=== PATIENT | male | born 1955 | race Caucasian/White ===

== ENCOUNTER 2022-07-07 09:19 | Outpatient (CLI) | payer MEDICARE, BC, SELFPAY | END 2022-07-07 09:20 | disposition home or self-care (01) | PROVIDERS: PCP Family Medicine; Visit Provider Family Medicine | DX: Z00.00 Encounter for general adult medical examination without abnormal findings (principal); Z12.5 Encounter for screening for malignant neoplasm of prostate; Z11.59 Encounter for screening for other viral diseases; Z13.6 Encounter for screening for cardiovascular disorders | CPT/HCPCS: 80053; 80061; 84153; 86803 ==

== ENCOUNTER 2022-08-18 11:35 | Outpatient (CLI) | payer MEDICARE, BC, SELFPAY | END 2022-08-18 11:36 | disposition home or self-care (01) | LOC: OP CLINIC 11:36 | PROVIDERS: PCP Family Medicine; Visit Provider Surgery | DX: Z86.010 Personal history of colon polyps (principal); K63.5 Polyp of colon; K62.1 Rectal polyp | CPT/HCPCS: 45380; 45381; 45385; 88305; 88341; 88342; 99153; J2250; J3010 ==

== ENCOUNTER 2022-09-02 07:26 | Outpatient (CLI) | payer MEDICARE, BC, SELFPAY ==
[2022-09-02 07:54] LABS: Creatinine* 1.2 mg/dL (0.5-1.5); Estimated Glomerular Filt Rate 67 ml/min
--- NOTE | 2022-09-02 08:00 | CRLHL7_ITS ---
For Patients: As a result of the Century Cures Act, medical imaging exams and procedure reports are released immediately into your electronic medical record. You may view this report before your referring provider. If you have questions, please contact your health care provider. Indication: MALIGNANT NEOPLASM OF COLON Technique: Postcontrast CT abdomen and pelvis. 79 cc Isovue 370 intravenous contrast. Please note that all CT scans at this facility use dose modulation, iterative reconstruction, and/or weight-based dosing when appropriate to reduce radiation dose to as low as reasonably achievable. Comparison: Ultrasound aorta and CT chest 07/16/2022 Findings: 4.7 millimeter nodule right lower lobe again noted. No pleural effusion. A few scattered calcifications are present within the liver. No suspicious intrahepatic mass. The gallbladder is normal. No calcified gallstones or biliary obstruction. The pancreas is normal. Calcified granulomas in the spleen are present. The adrenal glands are within normal limits. The kidneys are normal. Atherosclerotic disease. No aneurysm. No adenopathy. The bladder is normal. Mild heterogeneity of the prostate. No bowel obstruction or free fluid. No abscess. Diverticulosis. No fracture or suspicious osseous lesion. Impression: 4.7 millimeter nodule previously evaluated with screening CT 07/16/2022, unchanged. No adenopathy or intrahepatic mass. Colonic diverticulosis. No mesenteric fat stranding or adenopathy. Sequela of granulomatous disease with calcifications in the liver and spleen. Please note that all CT scans at this facility use dose modulation, iterative reconstruction, and/or weight-based dosing when appropriate to reduce radiation dose to as low as reasonably achievable. Dictated by Louis Arzola MD @ 09/02/2022 12:44:06 PM (Electronically Signed)
== END 2022-09-02 07:27 | disposition home or self-care (01) ==
LOC: CT 07:27
PROVIDERS: PCP Family Medicine; Visit Provider Surgery
DX: C18.9 Malignant neoplasm of colon, unspecified (principal); K57.30 Diverticulosis of large intestine without perforation or abscess without bleeding
CPT/HCPCS: 36415; 74177; 82565; Q9967

== ENCOUNTER 2022-09-11 14:06 | Outpatient (CLI) | payer MEDICARE, BC, SELFPAY | END 2022-09-11 14:07 | disposition home or self-care (01) | LOC: NFLDREF 09-14 06:23 | PROVIDERS: PCP Family Medicine; Referring Provider Family Medicine; Visit Provider Surgery | DX: C18.9 Malignant neoplasm of colon, unspecified (principal) | CPT/HCPCS: 82378 ==

== ENCOUNTER 2022-10-02 09:47 | Outpatient (CLI) | payer MEDICARE, BC, SELFPAY | END 2022-10-02 09:48 | disposition home or self-care (01) | PROVIDERS: PCP Family Medicine; Visit Provider Family Medicine | DX: Z01.818 Encounter for other preprocedural examination (principal) | CPT/HCPCS: 80053 ==

== ENCOUNTER 2023-01-26 22:43 | Outpatient (REF) | payer MEDICARE, BC, SELFPAY ==
[2023-01-29 08:45] LABS: Carcinoembryonic Antigen 1.4 ng/mL (<=3.8)
== END 2023-01-26 22:44 | disposition home or self-care (01) ==
LOC: NPINS 22:43
PROVIDERS: PCP Family Medicine; Visit Provider Colon & Rectal Surgery
DX: C18.9 Malignant neoplasm of colon, unspecified (principal)
CPT/HCPCS: 82378

== ENCOUNTER 2023-08-27 13:38 | Outpatient (CLI) | payer MEDICARE, BC, SELFPAY ==
--- NOTE | 2023-08-27 14:00 | CRLHL7_ITS ---
For Patients: As a result of the Cures Act, medical imaging exams and procedure reports are released immediately into your electronic medical record. You may view this report before your referring provider. If you have questions, please contact your health care provider. INDICATION: Lung cancer screening. History of smoking. High risk patient with greater than 40 pack-year smoking history. TECHNIQUE: Low-dose lung cancer screening non-contrast CT chest. Dose reduction techniques were used. COMPARISON: 07/16/2022 FINDINGS: NODULES: 4.8 millimeter nodule right lower lobe, series 3, image 121, unchanged. Calcified right perihilar nodule. Smaller calcified nodules elsewhere. LUNGS AND PLEURA: Emphysema. Areas of scarring. MEDIASTINUM: Calcified lymph nodes representing sequela of granulomatous change. CORONARY ARTERY CALCIFICATION: Present. LIMITED UPPER ABDOMEN: Calcified splenic granulomas. MUSCULOSKELETAL: Unremarkable. IMPRESSION: Negative for lung cancer screening purposes. LUNG-RADS CATEGORY: 2: Benign. RADIOLOGIST RECOMMENDATION: Continue annual screening with low-dose CT chest in 12 months. Please note that all CT scans at this facility use dose modulation, iterative reconstruction, and/or weight-based dosing when appropriate to reduce radiation dose to as low as reasonably achievable. Dictated by Louis Arzola MD @ 08/28/2023 1:07:23 PM (Electronically Signed)
== END 2023-08-27 13:39 | disposition home or self-care (01) ==
LOC: CT 13:39
PROVIDERS: PCP Family Medicine; Visit Provider Family Medicine
DX: Z12.2 Encounter for screening for malignant neoplasm of respiratory organs (principal); Z87.891 Personal history of nicotine dependence
CPT/HCPCS: 71271

== ENCOUNTER 2023-10-05 07:29 | Outpatient (CLI) | payer MEDICARE, BC, SELFPAY | END 2023-10-05 07:30 | disposition home or self-care (01) | PROVIDERS: PCP Family Medicine; Visit Provider Family Medicine | DX: I10 Essential (primary) hypertension (principal); Z13.6 Encounter for screening for cardiovascular disorders; Z13.1 Encounter for screening for diabetes mellitus; Z12.5 Encounter for screening for malignant neoplasm of prostate | CPT/HCPCS: 80053; 80061; 82043; 82570; G0103 ==

== ENCOUNTER 2023-11-02 07:57 | Outpatient (CLI) | payer MEDICARE, BC, SELFPAY ==
--- NOTE | 2023-11-02 09:00 | W.ANESCHARGE ---
Anesthesia Charges Start Date/Time Anesthesia Start Date: 11/02/23 Anesthesia Start Time: 08:50 Stop Date/Time Anesthesia Stop Date: 11/02/23 Anesthesia Stop Time: 09:14
--- NOTE | 2023-11-02 09:25 | W.ANESCHARGE ---
Anesthesia Charges Start Date/Time Anesthesia Start Date: 11/02/23 Anesthesia Start Time: 08:50 Stop Date/Time Anesthesia Stop Date: 11/02/23 Anesthesia Stop Time: 09:14
== END 2023-11-02 07:58 | disposition home or self-care (01) ==
PROVIDERS: PCP Family Medicine; Visit Provider Internal Medicine
DX: Z86.010 Personal history of colon polyps (principal); D12.8 Benign neoplasm of rectum
CPT/HCPCS: 00811; 45380; 88305; J2704

== ENCOUNTER 2024-09-01 07:53 | Outpatient (CLI) | payer MEDICARE, BC, SELFPAY ==
--- NOTE | 2024-09-01 08:00 | CRLHL7_ITS ---
For Patients: As a result of the Century Cures Act, medical imaging exams and procedure reports are released immediately into your electronic medical record. You may view this report before your referring provider. If you have questions, please contact your health care provider. INDICATION: Lung cancer screening. History of smoking. High risk patient with greater than 60 pack-year smoking history. TECHNIQUE: Low-dose lung cancer screening non-contrast CT chest. Dose reduction techniques were used. COMPARISON: 07/16/2022 FINDINGS: NODULES: Small bilateral nodules are similar, the largest is located within the right lower lobe and measures 5 millimeters. LUNGS AND PLEURA: Emphysema. MEDIASTINUM: Small calcified upper mediastinal lymph nodes are similar. Numerous other calcified lymph nodes are present elsewhere within the mediastinum and right hilum. CORONARY ARTERY CALCIFICATION: Mild. LIMITED UPPER ABDOMEN: Calcified splenic granulomas. MUSCULOSKELETAL: Unremarkable. IMPRESSION: Stable bilateral pulmonary nodules. LUNG-RADS CATEGORY: 2: Benign. RADIOLOGIST RECOMMENDATION: Continue annual screening with low-dose CT chest in 12 months. Please note that all CT scans at this facility use dose modulation, iterative reconstruction, and/or weight-based dosing when appropriate to reduce radiation dose to as low as reasonably achievable. Dictated by Louis Arzola MD @ 09/02/2024 12:36:57 PM (Electronically Signed)
== END 2024-09-01 07:54 | disposition home or self-care (01) ==
LOC: CT 07:54
PROVIDERS: PCP Family Medicine; Visit Provider Family Medicine
DX: Z12.2 Encounter for screening for malignant neoplasm of respiratory organs (principal); R91.8 Other nonspecific abnormal finding of lung field; Z87.891 Personal history of nicotine dependence
CPT/HCPCS: 71271

== ENCOUNTER 2024-09-23 11:50 | Outpatient (CLI) | payer MEDICARE, BC, SELFPAY | END 2024-09-23 11:51 | disposition home or self-care (01) | LOC: NFLDREF 09-25 05:56 | PROVIDERS: PCP Family Medicine; Referring Provider Family Medicine; Visit Provider Family Medicine | DX: E78.5 Hyperlipidemia, unspecified (principal); I10 Essential (primary) hypertension; C18.9 Malignant neoplasm of colon, unspecified; J44.1 Chronic obstructive pulmonary disease with (acute) exacerbation; Z12.5 Encounter for screening for malignant neoplasm of prostate | CPT/HCPCS: 80053; 80061; 82043; 82570; G0103 ==